=== PATIENT | female | born 1970 | race Caucasian/White ===

== ENCOUNTER 2021-01-17 21:07 | Emergency (ER) | payer MEDICAID ==
[~2021-01-17] VITALS: Ht 167.6 cm; Wt 90.0 kg
[~2021-01-17 21:07] MED LIST: LISINOPRIL; METFORMIN
[2021-01-17] MEDS ORDERED: TRAMADOL 50MG TABLET PO ONE (21:45)
[2021-01-17] MEDS ORDERED: KETOROLAC 60MG/2ML VIAL IM ONE (21:45)
[2021-01-17] MEDS ORDERED: TRAM-529 MT (23:51)
[2021-01-17] MEDS ORDERED: IBUP-2030 MT (23:51)
[2021-01-18 00:06] VITALS: BP 120/61
[2021-01-19] MEDS ORDERED: IBUP-2030 PO (23:34)
[2021-01-19] MEDS ORDERED: TRAM-529 PO (23:34)
== END 2021-01-18 00:09 | disposition home or self-care (01) ==
LOC: ER 21:07
DX: M54.42 Lumbago with sciatica, left side (principal); E11.9 Type 2 diabetes mellitus without complications
CPT/HCPCS: 72100; 81025; 96372; 99283; J1885

== ENCOUNTER 2021-01-19 22:22 | Emergency (ER) | payer MEDICAID ==
[~2021-01-19] VITALS: Ht 167.6 cm; Wt 90.0 kg
[~2021-01-19 22:22] MED LIST changes: +IBUP-2030 MT; +TRAM-529 MT
[2021-01-19] MEDS ORDERED: KETOROLAC 60MG/2ML VIAL IM STA (22:49)
[2021-01-19 22:58] VITALS: BP 165/62
[2021-01-19] MEDS ORDERED: TRAMADOL HCL/ACETAMINOPHEN 37.5/325MG TABLET PO ONE (23:00)
[2021-01-19] MEDS ORDERED: TRAMADOL 50MG TABLET PO ONE (23:15)
[2021-01-19] MEDS ORDERED: TRAM-529 PO (23:34)
[2021-01-19] MEDS ORDERED: IBUP-2030 PO (23:34)
== END 2021-01-19 23:45 | disposition home or self-care (01) ==
LOC: ER 22:22
DX: M54.32 Sciatica, left side (principal); R03.0 Elevated blood-pressure reading, without diagnosis of hypertension; E11.9 Type 2 diabetes mellitus without complications
CPT/HCPCS: 96372; 99283; J1885